=== PATIENT | female | born 1990 | race Caucasian/White ===

== ENCOUNTER 2022-10-24 17:50 | Emergency (ER) | payer MEDICAID ==
[~2022-10-24] VITALS: Ht 160 cm; Wt 92.1 kg
[2022-10-24 17:50] VITALS: BP 155/107
[~2022-10-24 17:50] MED LIST: DOXY50CA2 PO
--- NOTE | 2022-10-24 18:35 | NUR ---
TO TRIAGE ROOM, NO CHANGE IN CONDITION
[2022-10-24] MEDS ORDERED: IBUPROFEN 600 MG TABLET PO ONE (19:00)
[2022-10-24] MEDS ORDERED: SULF1TAB48 PO (19:40)
[2022-10-24] MEDS ORDERED: CEPH500T PO (19:40)
[2022-10-24] MEDS ORDERED: IBUPROFEN 600 MG TABLET ONE (19:51)
--- NOTE | 2022-10-24 19:57 | NUR ---
Patient discharged to home in stable condition. Written and verbal after care instructions given. Patient verbalizes understanding of instruction.
== END 2022-10-24 21:10 | disposition home or self-care (01) ==
LOC: ER 18:09
DX: L02.412 Cutaneous abscess of left axilla (principal); L02.411 Cutaneous abscess of right axilla; L02.512 Cutaneous abscess of left hand; R61 Generalized hyperhidrosis; Z79.899 Other long term (current) drug therapy
CPT/HCPCS: 73130-TC